=== PATIENT | female | born 1960 | race Caucasian/White ===

== ENCOUNTER 2019-12-17 10:29 | Emergency (ER) | payer SELFPAY ==
[~2019-12-17] VITALS: Ht 167 cm; Wt 95.0 kg
[~2019-12-17 10:29] MED LIST: ALBU1.25 IH; ALBU2.5V4 IH; AZIT500T PO; BENZONATATE 200 MG PO; DOXY100C2 PO; DOXY100T31 PO; EST.625T; GFCD10B PO; LEVO750T9 PO; METH4TAB PO; PRD10T PO; PRD50T PO; PRED10TA22 PO; RNT150T PO; RT-ALBUINH IH
--- NOTE | 2019-12-17 10:55 | NUR ---
COVID TESTING DONE.
[2019-12-17] MEDS ORDERED: RX-ALBUTEROL INHALER (VENTOLIN HFA) 18 GM IH STA (11:13)
[2019-12-17] MEDS ORDERED: NS IV 1000 ML 1,000 ML IV SCH ×2 (11:13→11:35)
[2019-12-17] MEDS ORDERED: LEVOFLOXACIN 500 MG/100 ML IV 100 ML IV ONE (11:15)
--- OUTSIDE RECORDS SUMMARY | 2019-12-17 11:17 | XMS REPORT | Clinical Summary ---
Author Author [facility] Organization [facility] Address Unknown Phone Unavailable Care Team Providers Care Waste Water Plant Operator Name Role Phone David Dacosta MD Unavailable Nay Mckeon Unavailable Unavailable Brain Mcelroy MD PCP Unavailable Janell Mishra RN Unavailable Unavailable Source Comments Some departments are not documenting in the electronic medical record. If you d o not see the information that you expected, contact Release of Information in Critical access hospital Information Management department at [phone] for further assistan ce in locating additional records.[facility] Allergies Comments Active Allergy Reactions Severity Noted Date swelling Penicillins RASH Medium 01/15/2015 Sulfa (Sulfonamide HIVES Medium 01/28/2015 Antibiotics) Medications End Date Status Medication Sig Dispensed Refills Start Date Active NO HOME MEDICATIONS [address](+) Take 1 Cap by 30 Cap 5 01 (PRILOSEC) 20 mg mouth daily. 5 capsuleIndications: Gastroesophageal reflux disease, esophagitis presence not specified, Calzada's esophagus, Colon polyp Active PEG 6317-Icfvhkctuabt-Oon Take as 1 Each 0 C (MOVIPREP) directed by 5 100-7.5-2.691 gram the pwpkIndications: physician. Gastroesophageal reflux disease, esophagitis presence not specified, Calzada's esophagus, Colon polyp Active Problems Not on file Family History Medical History Relation Name Comments Cancer Mother Cancer-Ovarian Sister Thyroid Disease Sister Thyroid Disease Sister Thyroid Disease Sister Relation Name Status Comments Father Mother Sister Alive Sister Alive Sister Alive Social History Date Tobacco Use Types Packs/Day Years Used Current Every Day Smoker Smokeless Tobacco: Never Used Drinks/Week oz/Week Comments Alcohol Use 0 Standard drinks or equivalent 0.0 No Sex Assigned at Date Recorded Not on file Industry Job Start Date Occupation Not on file Not on file Not on file Travel End Travel History Travel Start No recent travel history available. Last Filed Vital Signs Reading Time Taken Comments Vital Sign 121/79 01/28/2015 12:26 PM CDT Blood Pressure 62 01/28/2015 12:26 PM CDT Pulse 36.4 C (97.5 F) 01/28/2015 11:58 AM CDT Temperature 16 01/15/2015 1:02 PM CDT Respiratory Rate 99% 01/28/2015 12:26 PM CDT Oxygen Saturation - - Inhaled Oxygen Concentration 86.2 kg (190 lb) 01/28/2015 10:19 AM CDT Weight 167.6 cm (5' 6") 01/28/2015 10:19 AM CDT Height 30.67 01/28/2015 10:19 AM CDT Body Mass Index Plan of Treatment Health Maintenance Due Date Last Done Comments HIV SCREENING 1973 DTAP/TDAP VACCINES (1 - 1976 Tdap) HEPATITIS C SCREENING 1976 PHYSICAL (COMPREHENSIVE) 1976 EXAM CERVICAL CANCER SCREENING 1979 BREAST CANCER SCREENING 1998 SHINGLES RECOMBINANT 2008 VACCINE (1 of 2) INFLUENZA VACCINE 03/06/2020 COLORECTAL CANCER 01/28/2025 01/28/2015 SCREENING Results Not on filefrom Last 3 Months Advance Directives Patient Quality Control Projectionist Explanation Type Date Recorded Advance 01/28/2015 8:56 AM Directive/DPOA
--- OUTSIDE RECORDS SUMMARY | 2019-12-17 11:18 | XMS REPORT | Continuity of Care Document ---
Author Organization Unknown Address Unknown Phone Unavailable Allergies Active Description Code Type Severity Reaction Onset Reported/Identified Relationship to Patient Clinical Status Yes Penicillins [id number] Drug Aller gy Mild HIVES 03/03/2009 Yes Sulfa (Sulfonamide Antibiotics) [id number] Drug Allergy Mild HIVES 9 Medications There is no data. Problems Date Dx Coded Attending Type Code Diagnosis Diagnosed By 03/03/2009 Ot 789.09 06/01/2011 Ot 305.1 TOBA POTABLE WATER TREATMENT OPERATOR USE DISORDER 06/01/2011 Ot 466.0 ACUT E BRONCHITIS 06/01/2011 Ot 786.2 COUGH 01/13/2014 DONTE CLINE MD Ot 719. 44 JOINT PAIN-HAND 01/13/2014 DONTE CLINE MD Ot 727. 05 TENOSYNOV HAND/WRIST NEC 04/15/2014 JULIANA WEATHERS APRN Ot 913 .0 ABRASION FOREARM 04/15/2014 JULIANA WEATHERS APRN Ot 959 .3 ELB/FOREARM/WRST INJ NOS 04/15/2014 JULIANA WEATHERS APRN Ot E000.8 OTHER EXTERNAL CAUSE STATUS 04/15/2014 JULIANA WEATHERS APRN Ot E888.1 FALL STRIKING OBJECT NEC 06/17/2014 Ot V76.12 08/28/2014 RANDY CLARKE APRN 530.85 ROBLES'S ESOPHAGUS 08/28/2014 RANDY CLARKE APRN V72.31 YARN EXAMINER SKEINS EXAM, ROUTINE 08/28/2014 RANDY CLARKE APRN V72.62 LAB SCREENING- GENERAL PHYSICAL 08/28/2014 RANDY CLARKE APRN V76.10 BREAST CANCER SCREENING 08/28/2014 RANDY CLARKE APRN V76.51 COLON CANCER SCREENING 11/24/2015 Ot F17.210 NI COTINE DEPENDENCE, CIGARETTES, UNCOMPL 11/24/2015 Ot J20.9 ACUT E BRONCHITIS, UNSPECIFIED 11/27/2015 TRICIA, RANDY A FORKLIFT OPERATOR Ot V76.12 OTH SCREEN MAMMO-MALIGN NEOPLASM OF ARMANI 11/29/2015 Ot F17.210 NI COTINE DEPENDENCE, CIGARETTES, UNCOMPL 11/29/2015 Ot J20.9 ACUT E BRONCHITIS, UNSPECIFIED 12/18/2015 Ot F17.210 NI COTINE DEPENDENCE, CIGARETTES, UNCOMPL 12/18/2015 Ot J20.9 ACUT E BRONCHITIS, UNSPECIFIED 03/25/2016 RANDY CLARKE FORKLIFT OPERATOR Ot V76.12 OTH SCREEN MAMMO-MALIGN NEOPLASM OF ARMANI 03/26/2016 SHANICE BERTRAND DO Ot F17.210 NICOTINE DEPENDENCE, CIGARETTES, UNCOMPL 03/26/2016 SHANICE BERTRAND DO M Ot I34. 1 NONRHEUMATIC MITRAL (VALVE) PROLAPSE 03/26/2016 SHANICE BERTRAND DO Ot J18. 9 PNEUMONIA, UNSPECIFIED ORGANISM 03/26/2016 SHANICE BERTRAND DO M Ot J44. 0 CHRONIC OBSTRUCTIVE PULMON DISEASE W ACU 03/26/2016 SHANICE BERTRAND DO Ot J44. 1 CHRONIC OBSTRUCTIVE PULMONARY DISEASE W 03/26/2016 SHANICE BERTRAND DO M Ot R91. 8 OTHER NONSPECIFIC ABNORMAL FINDING OF CELIA 03/26/2016 TRICIAANUJRANDY A FORKLIFT OPERATOR Ot V76.12 OTH SCREEN MAMMO-MALIGN NEOPLASM OF ARMANI 03/26/2016 SHANICE BERTRAND DO Ot F17.210 NICOTINE DEPENDENCE, CIGARETTES, UNCOMPL 03/26/2016 SHANICE BERTRAND DO M Ot I34. 1 NONRHEUMATIC MITRAL (VALVE) PROLAPSE 03/26/2016 SHANICE BERTRAND DO Ot J18. 9 PNEUMONIA, UNSPECIFIED ORGANISM 03/26/2016 SHANICE BERTRAND DO M Ot J44. 0 CHRONIC OBSTRUCTIVE PULMON DISEASE W ACU 03/26/2016 SHANICE BERTRAND DO M Ot J44. 1 CHRONIC OBSTRUCTIVE PULMONARY DISEASE W 03/26/2016 HADLEY BERTRAND DOSON M Ot R91. 8 OTHER NONSPECIFIC ABNORMAL FINDING OF CELIA 03/29/2016 SHANICE BERTRAND DO M Ot F17.210 NICOTINE DEPENDENCE, CIGARETTES, UNCOMPL 03/29/2016 SHANICE BERTRAND DO M Ot I34. 1 NONRHEUMATIC MITRAL (VALVE) PROLAPSE 03/29/2016 SHANICE BERTRAND DO M Ot J18. 9 PNEUMONIA, UNSPECIFIED ORGANISM 03/29/2016 SHANICE BERTRAND DO Ot J44. 0 CHRONIC OBSTRUCTIVE PULMON DISEASE W ACU 03/29/2016 SHANICE BERTRAND DO Ot J44. 1 CHRONIC OBSTRUCTIVE PULMONARY DISEASE W 03/29/2016 SHANICE BERTRAND DO Ot R91. 8 OTHER NONSPECIFIC ABNORMAL FINDING OF CELIA 04/28/2016 JERZYSHANICE PAYNE DO Ot R91. 8 OTHER NONSPECIFIC ABNORMAL FINDING OF CELIA 04/28/2016 SHANICE BERTRAND DO Ot Z72. 0 TOBACCO USE 05/03/2016 SHANICE BERTRAND DO Ot R91. 8 OTHER NONSPECIFIC ABNORMAL FINDING OF CELIA 05/03/2016 SHANICE BERTRAND DO Ot Z72. 0 TOBACCO USE 05/06/2016 SHANICE BERTRAND DO Ot R91. 8 OTHER NONSPECIFIC ABNORMAL FINDING OF CELIA 05/06/2016 SHANICE BERTRAND DO Ot Z72. 0 TOBACCO USE Procedures Code Description Performed By Per formed On GENERAL S GEM BLOUNT 09/02/2014 84102 ROUT INE VENIPUNCTURE 09/02/2014 64378 CBC 09/02/2014 1143677 GF R CALC (RESULT ONLY) 09/02/2014 64270 CMP 09/02/2014 09771 LIPI D PANEL 09/02/2014 60192 TSH 09/02/2014 13654 MAMM OGRAM, SCREENING 09/03/2014 Results Test Result Range Complete blood count (CBC) with automate d white blood cell (WBC) differential - 03/25/16 17:34 Blood leukocytes automated count (number/volume) 9.4 10*3/uL 4.3-11.0 Blood erythrocytes automated count (number/volume) 4.88 10*6/uL 4.35-5.85 Venous blood hemoglobin measurement (mass/volume) 14.9 g/dL 11.5-16.0 Blood hematocrit (volume fraction) 44 % 35-52 Automated erythrocyte mean corpuscular volume 90 [ foz_us] 80-99 Automated erythrocyte mean corpuscular h emoglobin (mass per erythrocyte) 31 pg 25-34 Automated erythrocyte mean corpuscular h emoglobin concentration measurement (mass/volume) 34 g/dL 32-36 Automated erythrocyte distribution width ratio 13. 6 % 10.0- 14.5 Automated blood platelet count (count/volume) 184 10*3/uL 130-400 Automated blood platelet mean volume measurement 10.5 [foz_us] 7.4-10.4 Automated blood neutrophils/100 leukocytes 73 % 42-75 Automated blood lymphocytes/100 leukocytes 16 % 12-44 Blood monocytes/100 leukocytes 11 % 0-12 Automated blood eosinophils/100 leukocytes 0 % 0-10 Automated blood basophils/100 leukocytes 1 % 0-10 Blood neutrophils automated count (number/volume) 6.9 10*3 1.8-7.8 Blood lymphocytes automated count (number/volume) 1.5 10*3 1.0-4.0 Blood monocytes automated count (number/volume) 1. 0 10*3 0.0-1.0 Automated eosinophil count 0.0 10*3/uL 0 .0-0.3 Automated blood basophil count (count/volume) 0.1 10*3/uL 0.0-0.1 Comprehensive metabolic panel - 03/25/16 17:34 Serum or plasma sodium measurement (moles/volume) 137 mmol/L 135-145 Serum or plasma potassium measurement (moles/volume) 3.9 mmol/L 3.6-5.0 Serum or plasma chloride measurement (moles/volume) 103 mmol/L 98-107 Carbon dioxide 22 mmol/L 21-32 Serum or plasma anion gap determination (moles/volume) 12 mmol/L 5-14 Serum or plasma urea nitrogen measurement (mass/volume ) 14 mg/dL 7-18 Serum or plasma creatinine measurement (mass/volume) 1.07 mg/dL 0.60-1.30 Serum or plasma urea nitrogen/creatinine mass ratio 13 NRG Serum or plasma creatinine measurement w ith calculation of estimated glomerular filtration rate 53 NRG Serum or plasma glucose measurement (mass/volume) 97 mg/dL 70-105 Serum or plasma calcium measurement (mass/volume) 9.3 mg/dL 8.5-10.1 Serum or plasma total bilirubin measurement (mass/volu me) 0.3 mg/dL 0.1-1.0 Serum or plasma alkaline phosphatase shiva surement (enzymatic activity/volume) 67 U/L 40-136 Serum or plasma aspartate aminotransfera se measurement (enzymatic activity/volume) 27 U/L 5-34 Serum or plasma alanine aminotransferase measurement (enzymatic activity/volume) 31 U/L 0-55 Serum or plasma protein measurement (mass/volume) 6.7 g/dL 6.4-8.2 Serum or plasma albumin measurement (mass/volume) 4.0 g/dL 3.2-4.5 Bacterial blood culture - 03/25/16 17:34 Bacterial blood culture NG NRG Blood lactic acid measurement (moles/vol ume) - 03/25/16 17:45 Blood lactic acid measurement (moles/volume) 1.8 m mol/L 0.5- 2.0 Bacterial blood culture - 03/25/16 18:10 Bacterial blood culture NG NRG Sputum Gram stain - 03/25/16 23:20 GRAM STAIN SPUTUM AND MIXED BACTERIAL MIKKI NRG Bacterial sputum culture - 03/25/16 23:2 0 Bacterial sputum culture NORMAL NRG Complete blood count (CBC) with automate d white blood cell (WBC) differential - 03/27/16 05:38 Blood leukocytes automated count (number/volume) 14.8 10*3/uL 4.3-11.0 Blood erythrocytes automated count (number/volume) 4.32 10*6/uL 4.35-5.85 Venous blood hemoglobin measurement (mass/volume) 13.2 g/dL 11.5-16.0 Blood hematocrit (volume fraction) 39 % 35-52 Automated erythrocyte mean corpuscular volume 91 [ foz_us] 80-99 Automated erythrocyte mean corpuscular h emoglobin (mass per erythrocyte) 31 pg 25-34 Automated erythrocyte mean corpuscular h emoglobin concentration measurement (mass/volume) 34 g/dL 32-36 Automated erythrocyte distribution width ratio 13. 5 % 10.0- 14.5 Automated blood platelet count (count/volume) 185 10*3/uL 130-400 Automated blood platelet mean volume measurement 10.9 [foz_us] 7.4-10.4 Automated blood neutrophils/100 leukocytes 80 % 42-75 Automated blood lymphocytes/100 leukocytes 12 % 12-44 Blood monocytes/100 leukocytes 7 % 0-12 Automated blood eosinophils/100 leukocytes 0 % 0-10 Automated blood basophils/100 leukocytes 1 % 0-10 Blood neutrophils automated count (number/volume) 11.9 10*3 1.8-7.8 Blood lymphocytes automated count (number/volume) 1.7 10*3 1.0-4.0 Blood monocytes automated count (number/volume) 1. 1 10*3 0.0-1.0 Automated eosinophil count 0.0 10*3/uL 0 .0-0.3 Automated blood basophil count (count/volume) 0.1 10*3/uL 0.0-0.1 Blood manual differential performed dete ction - 03/27/16 05:38 Blood monocytes/100 leukocytes 4 % NRG Manual blood segmented neutrophils/100 leukocytes 76 % NRG Blood band neutrophils/100 leukocytes 5 % NRG Manual blood lymphocytes/100 leukocytes 9 % NRG Manual eosinophils/100 leukocytes in nose 0 % NRG Manual blood basophils/100 leukocytes 0 % NRG Blood lymphocytes variant/100 leukocytes 6 % NRG Blood anisocytosis detection by light microscopy S LIGHT NRG Blood toxic granules detection by light microscopy 1+ NRG Comprehensive metabolic panel - 03/27/16 05:38 Serum or plasma sodium measurement (moles/volume) 141 mmol/L 135-145 Serum or plasma potassium measurement (moles/volume) 3.9 mmol/L 3.6-5.0 Serum or plasma chloride measurement (moles/volume) 112 mmol/L 98-107 Carbon dioxide 18 mmol/L 21-32 Serum or plasma anion gap determination (moles/volume) 11 mmol/L 5-14 Serum or plasma urea nitrogen measurement (mass/volume ) 15 mg/dL 7-18 Serum or plasma creatinine measurement (mass/volume) 0.85 mg/dL 0.60-1.30 Serum or plasma urea nitrogen/creatinine mass ratio 18 NRG Serum or plasma creatinine measurement w ith calculation of estimated glomerular filtration rate > NRG Serum or plasma glucose measurement (mass/volume) 153 mg/dL 70-105 Serum or plasma calcium measurement (mass/volume) 8.9 mg/dL 8.5-10.1 Serum or plasma total bilirubin measurement (mass/volu me) 0.2 mg/dL 0.1-1.0 Serum or plasma alkaline phosphatase shiva surement (enzymatic activity/volume) 66 U/L 40-136 Serum or plasma aspartate aminotransfera se measurement (enzymatic activity/volume) 18 U/L 5-34 Serum or plasma alanine aminotransferase measurement (enzymatic activity/volume) 22 U/L 0-55 Serum or plasma protein measurement (mass/volume) 5.7 g/dL 6.4-8.2 Serum or plasma albumin measurement (mass/volume) 3.4 g/dL 3.2-4.5 Magnesium - 03/27/16 05:38 Magnesium 2.2 mg/dL 1.8-2.4 Lipid 1996 panel - 03/27/16 05:38 Serum or plasma triglyceride measurement (mass/volume) 95 mg/dL <150 Serum or plasma cholesterol measurement (mass/volume) 140 mg/dL < 200 Serum or plasma cholesterol in HDL measurement (mass/v olume) 44 mg/dL 40-60 Cholesterol in LDL [mass/volume] in serum or plasma by direct assay 80 mg/dL 1-129 Serum or plasma cholesterol in VLDL measurement (mass/ volume) 19 mg/dL 5-40 Complete blood count (CBC) with automate d white blood cell (WBC) differential - 03/28/16 05:38 Blood leukocytes automated count (number/volume) 17.8 10*3/uL 4.3-11.0 Blood erythrocytes automated count (number/volume) 4.03 10*6/uL 4.35-5.85 Venous blood hemoglobin measurement (mass/volume) 12.2 g/dL 11.5-16.0 Blood hematocrit (volume fraction) 37 % 35-52 Automated erythrocyte mean corpuscular volume 91 [ foz_us] 80-99 Automated erythrocyte mean corpuscular h emoglobin (mass per erythrocyte) 30 pg 25-34 Automated erythrocyte mean corpuscular h emoglobin concentration measurement (mass/volume) 33 g/dL 32-36 Automated erythrocyte distribution width ratio 13. 5 % 10.0- 14.5 Automated blood platelet count (count/volume) 189 10*3/uL 130-400 Automated blood platelet mean volume measurement 10.7 [foz_us] 7.4-10.4 Automated blood neutrophils/100 leukocytes 84 % 42-75 Automated blood lymphocytes/100 leukocytes 11 % 12-44 Blood monocytes/100 leukocytes 5 % 0-12 Automated blood eosinophils/100 leukocytes 0 % 0-10 Automated blood basophils/100 leukocytes 0 % 0-10 Blood neutrophils automated count (number/volume) 14.9 10*3 1.8-7.8 Blood lymphocytes automated count (number/volume) 1.9 10*3 1.0-4.0 Blood monocytes automated count (number/volume) 0. 8 10*3 0.0-1.0 Automated eosinophil count 0.0 10*3/uL 0 .0-0.3 Automated blood basophil count (count/volume) 0.1 10*3/uL 0.0-0.1 Comprehensive metabolic panel - 03/28/16 05:38 Serum or plasma sodium measurement (moles/volume) 139 mmol/L 135-145 Serum or plasma potassium measurement (moles/volume) 3.8 mmol/L 3.6-5.0 Serum or plasma chloride measurement (moles/volume) 111 mmol/L 98-107 Carbon dioxide 20 mmol/L 21-32 Serum or plasma anion gap determination (moles/volume) 8 mmol/L 5-14 Serum or plasma urea nitrogen measurement (mass/volume ) 16 mg/dL 7-18 Serum or plasma creatinine measurement (mass/volume) 0.80 mg/dL 0.60-1.30 Serum or plasma urea nitrogen/creatinine mass ratio 20 NRG Serum or plasma creatinine measurement w ith calculation of estimated glomerular filtration rate > NRG Serum or plasma glucose measurement (mass/volume) 145 mg/dL 70-105 Serum or plasma calcium measurement (mass/volume) 8.2 mg/dL 8.5-10.1 Serum or plasma total bilirubin measurement (mass/volu me) 0.2 mg/dL 0.1-1.0 Serum or plasma alkaline phosphatase shiva surement (enzymatic activity/volume) 51 U/L 40-136 Serum or plasma aspartate aminotransfera se measurement (enzymatic activity/volume) 19 U/L 5-34 Serum or plasma alanine aminotransferase measurement (enzymatic activity/volume) 25 U/L 0-55 Serum or plasma protein measurement (mass/volume) 5.1 g/dL 6.4-8.2 Serum or plasma albumin measurement (mass/volume) 3.1 g/dL 3.2-4.5 Comprehensive metabolic panel - 03/29/16 05:25 Serum or plasma sodium measurement (moles/volume) 140 mmol/L 135-145 Serum or plasma potassium measurement (moles/volume) 4.2 mmol/L 3.6-5.0 Serum or plasma chloride measurement (moles/volume) 110 mmol/L 98-107 Carbon dioxide 21 mmol/L 21-32 Serum or plasma anion gap determination (moles/volume) 9 mmol/L 5-14 Serum or plasma urea nitrogen measurement (mass/volume ) 20 mg/dL 7-18 Serum or plasma creatinine measurement (mass/volume) 0.81 mg/dL 0.60-1.30 Serum or plasma urea nitrogen/creatinine mass ratio 25 NRG Serum or plasma creatinine measurement w ith calculation of estimated glomerular filtration rate > NRG Serum or plasma glucose measurement (mass/volume) 146 mg/dL 70-105 Serum or plasma calcium measurement (mass/volume) 8.5 mg/dL 8.5-10.1 Serum or plasma total bilirubin measurement (mass/volu me) 0.2 mg/dL 0.1-1.0 Serum or plasma alkaline phosphatase shiva surement (enzymatic activity/volume) 62 U/L 40-136 Serum or plasma aspartate aminotransfera se measurement (enzymatic activity/volume) 19 U/L 5-34 Serum or plasma alanine aminotransferase measurement (enzymatic activity/volume) 26 U/L 0-55 Serum or plasma protein measurement (mass/volume) 5.2 g/dL 6.4-8.2 Serum or plasma albumin measurement (mass/volume) 3.1 g/dL 3.2-4.5 Complete blood count (CBC) with automate d white blood cell (WBC) differential - 03/29/16 05:25 Blood leukocytes automated count (number/volume) 16.2 10*3/uL 4.3-11.0 Blood erythrocytes automated count (number/volume) 3.98 10*6/uL 4.35-5.85 Venous blood hemoglobin measurement (mass/volume) 12.1 g/dL 11.5-16.0 Blood hematocrit (volume fraction) 36 % 35-52 Automated erythrocyte mean corpuscular volume 91 [ foz_us] 80-99 Automated erythrocyte mean corpuscular h emoglobin (mass per erythrocyte) 30 pg 25-34 Automated erythrocyte mean corpuscular h emoglobin concentration measurement (mass/volume) 34 g/dL 32-36 Automated erythrocyte distribution width ratio 13. 5 % 10.0- 14.5 Automated blood platelet count (count/volume) 196 10*3/uL 130-400 Automated blood platelet mean volume measurement 10.6 [foz_us] 7.4-10.4 Automated blood neutrophils/100 leukocytes 80 % 42-75 Automated blood lymphocytes/100 leukocytes 14 % 12-44 Blood monocytes/100 leukocytes 5 % 0-12 Automated blood eosinophils/100 leukocytes 0 % 0-10 Automated blood basophils/100 leukocytes 1 % 0-10 Blood neutrophils automated count (number/volume) 13.0 10*3 1.8-7.8 Blood lymphocytes automated count (number/volume) 2.2 10*3 1.0-4.0 Blood monocytes automated count (number/volume) 0. 9 10*3 0.0-1.0 Automated eosinophil count 0.0 10*3/uL 0 .0-0.3 Automated blood basophil count (count/volume) 0.2 10*3/uL 0.0-0.1 Encounters ACCT No. Visit Date/Time Discharge Status Pt. Type Provider Facility Loc./Unit Complaint [id number] 09/02/2014 08:00:00 09/02/2014 23:59: 59 CLS Outpatient RANDY CLARKE APRN [id number] 05/06/2017 13:00:00 017 23:59:59 CLS Preadmit CONRAD LARA APRN [facility] RT MIXED RESTRICTIVE/OBSTRUCTIVE LUNG DISEASE [id number] 04/28/2016 11:24:00 016 23:59:59 CLS Outpatient SHANICE BERTRAND DO [facility] RAD LUNG MASS [id number] 03/25/2016 18:50:00 016 12:30:00 DIS Inpatient SHANICE BERTRAND DO [facility] 4TH PNEUMONIA [id number] 09/05/2014 13:52:00 015 23:59:59 CLS Outpatient RANDY CLARKE APRN [facility] RAD SCREENING [id number] 04/15/2014 19:45:00 014 21:21:00 DIS Emergency JULIANA WEATHERS FORKLIFT OPERATOR [facility] ER LEFT WRIST PAIN [id number] 01/13/2014 00:52:00 014 01:56:00 DIS Emergency DONTE CLINE MD [facility] ER L WRIST PAIN [id number] 04/24/2013 17:00:00 013 10:10:00 DIS Inpatient [id number] 11/23/2015 23:14:00 Document Registration [id number] 06/17/2014 08:59:00 Document Registration [id number] 06/01/2011 19:24:00 Document Registration [id number] 03/03/2009 18:21:00 Document Registration [id number] 02/11/2009 08:17:00 Document Registration
--- OUTSIDE RECORDS SUMMARY | 2019-12-17 11:18 | XMS REPORT ---
Author Author [facility] Skinny Mom Address [address] [address] Care Team Providers Care Optometric Technician Name Role Phone JASPREET BOLES Unavailable Allergies No Information Encounters No Information Medical Equipment No Information Goals No Information Immunizations No Information Interventions No Information Medications No Information Payers No Information Plan of Treatment The data below is from unstructured sources Discharge Date 11/24/15 12:22am Disposition 01 HOME, SELF-CARE Condition at Discharge Stable Instructions/Education Provided Acut e Bronchitis (ED) Prescriptions See Medication Section Referrals JASPREET BOLES MD - Primary Care Physician No plan of care. Problems No Information Procedures The data below is from unstructured sourcesNo known history of procedures.No known history of procedures.No known history of procedures. Results The data below is from unstructured sourcesNo known relevant diagnostic tests, laboratory data and/or discharge summary. Social History No Information Vital Signs The data below is from unstructured sources Vital Response Date/Time Temperature (Fahrenheit) 96.4 degree s F (97.6 - 99.5) 11/24/2015 12:22am Temperature (Calculated Celsius) 35. 46980 degrees C (36.4 - 37.5) 11/24/2015 12:22am Temperature Source Temporal 11/24/2015 12:22am Pulse Rate (adult) 76 bpm (60 - 90) 11/24/2015 12:22am Respiratory Rate 18 bpm (12 - 24) 11/24/2015 12:22am O2 Sat by Pulse Oximetry 97 % (88 - 100) 11/24/2015 12:22am Blood Pressure 148/81 mm Hg 11/24/2015 12:22am Blood Pressure Mean 117 mm Hg 11/23/2015 11:20pm Pain Pain Intensity 0 2015 12:22am Height (Feet) 5 feet 11:20pm Height (Inches) 6 inches 11/23/2015 11:20pm Height (Calculated Centimeters) 167. 274119 cm 11/23/2015 11:20pm Weight (Pounds) 205 pounds 11/23/2015 11:20pm Weight (Calculated Grams) 65284.475 gm 11/23/2015 11:20pm Weight (Calculated Kilograms) 92.986 437 kilograms 11/23/2015 11:20pm Calculated BMI 32.28 11:20pm Vital Response Date/Time Temperature (Fahrenheit) 98.7 degree s F (97.6 - 99.5) Temperature (Calculated Celsius) 37. 60958 degrees C (36.4 - 37.5) Temperature Source Temporal Pulse Rate (adult) 73 bpm (60 - 90) Respiratory Rate 18 bpm (12 - 24) O2 Sat by Pulse Oximetry 97 % (88 - 100) Blood Pressure 175/83 mm Hg Pain Pain Intensity 6 Height (Feet) 5 feet Height (Inches) 6 inches Height (Calculated Centimeters) 167. 950801 cm Weight (Pounds) 200 pounds Weight (Calculated Kilograms) 90.718 475 kilograms Calculated BMI 32.28 Vital Response Date/Time Temperature (Fahrenheit) 98.7 degree s F (97.6 - 99.5) Temperature (Calculated Celsius) 37. 70848 degrees C (36.4 - 37.5) Temperature Source Temporal Pulse Rate (adult) 73 bpm (60 - 90) Respiratory Rate 18 bpm (12 - 24) O2 Sat by Pulse Oximetry 97 % (88 - 100) Blood Pressure 175/83 mm Hg Pain Pain Intensity 6 Height (Feet) 5 feet Height (Inches) 6 inches Height (Calculated Centimeters) 167. 447095 cm Weight (Pounds) 200 pounds Weight (Calculated Kilograms) 90.718 475 kilograms Calculated BMI 32.28 Functional Status The data below is from unstructured sourcesNo functional status results.No functional status results.No functional status results. Mental Status No Information Advance Directives Directive Response Recor ded Date/Time Advance Directives No 11:20pm Health Care Power of Wheel Cutter No 11/23/15 11:20pm Organ Donor No 11/23/15 11:20pm Resuscitation Status Full Code 11/23/15 11:20pm Directive Response Recor ded Date/Time Advance Directives No 8:04pm Health Care Power of Wheel Cutter No 04/15/14 8:04pm Organ Donor No 04/15/14 8:04pm Resuscitation Status Full Code 04/15/14 8:04pm Discharge Instructions No hospital discharge instructions.No hospital discharge instructions. Additional Source Comments This clinical document has been generated using [employer] software that has been certified by the Office of the National Coordinator for Health Information Technology (ONC 15.99.04.3023.Diam.31.00.0.509961) and the National Committee for Mill Worker (NCQA, as an eMeasure certified technology). FOR RECORDS PERTAINING TO PATIENTS WHO ARE OR HAVE BEEN ENROLLED IN A CHEMICAL D EPENDENCY/SUBSTANCE ABUSE PROGRAM, SOME INFORMATION MAY BE OMITTED. This clinica l summary was aggregated from multiple sources. Caution should be exercised in using it in the provision of clinical care. This summary normalizes information from multiple sources, and as a consequence, information in this document may ma terially change the coding, format and clinical context of patient data. In lucie tion, data may be omitted in some cases. CLINICAL DECISIONS SHOULD BE BASED ON T HE PRIMARY CLINICAL RECORDS. [employer] provides no warranty or guara ntee of the accuracy or completeness of information in this document.The followi ng information is based on time limited clinical information
[2019-12-17 11:22] LABS: BASOPHILS % (AUTO) 0 % (0-10); EOSINOPHILS # (AUTO) 0.1 10^3/uL (0.0-0.3); EOSINOPHILS % (AUTO) 1 % (0-10); HEMATOCRIT 41 % (35-52); HEMOGLOBIN 14.3 G/DL (11.5-16.0); LYMPHOCYTES # (AUTO) 1.4 X 10^3 (1.0-4.0); LYMPHOCYTES % (AUTO) 16 % (12-44); MEAN CORPUSCULAR HEMOGLOBIN 30 PG (25-34); MEAN CORPUSCULAR HGB CONC 35 G/DL (32-36); MEAN CORPUSCULAR VOLUME 88 FL (80-99); MEAN PLATELET VOLUME 10.8 FL (7.4-10.4); MONOCYTES # (AUTO) 0.7 X 10^3 (0.0-1.0); MONOCYTES % (AUTO) 8 % (0-12); NEUTROPHILS # (AUTO) 6.7 X 10^3 (1.8-7.8); NEUTROPHILS % (AUTO) 75 % (42-75); PLATELET COUNT 161 10^3/uL (130-400); RED CELL DISTRIBUTION WIDTH 13.5 % (10.0-14.5); WHITE BLOOD COUNT 8.9 10^3/uL (4.3-11.0)
[2019-12-17 11:30] LABS: ALBUMIN 4.1 GM/DL (3.2-4.5); POTASSIUM 3.4 MMOL/L (3.6-5.0)
[2019-12-17 11:31] LABS: CALCIUM 9.2 MG/DL (8.5-10.1)
[2019-12-17 11:33] LABS: INR 0.9 (0.8-1.4); PROTHROMBIN TIME PATIENT 12.7 SEC (12.2-14.7); TOTAL PROTEIN 6.9 GM/DL (6.4-8.2)
[2019-12-17 11:34] LABS: BILIRUBIN,TOTAL 0.7 MG/DL (0.1-1.0)
--- NOTE | 2019-12-17 11:35 | ED Cough/URI ---
General Chief Complaint: Respiratory Problems Stated Complaint: SOB;COUGH Nursing Triage Note: ARRIVED VIA POV TO [facility]. COMPLAINS OF SOA WITH SORE THROAT AND NASAL CONGESTION X2 DAYS. SORE THROAT IS GONE. STATES SHE IS ALSO HAVING SOME DIARRHEA AFTER TAKING ELDERBERRY. DENIES FEVER. STATES SHE GETS THIS TWICE A YEAR. Sepsis Screen: No Definite Risk Source: patient Exam Limitations: no limitations History of Present Illness Date Seen by Provider: Dec 17, 2019 Time Seen by Provider: 10:43 Initial Comments Patient presents to ER by private conveyance from home with chief complaint of shortness of air and a cough as well as nasal congestion. She had a fever 101 on Tuesday, 2 days ago. No fever today no chills. No nausea vomiting but she did have some soft stools without blood in it. She says she gets symptoms like this about twice a year and typically a Z-Yogesh helps. She did lose her albuterol inhaler and feels wheezy. She denies having a diagnosis of asthma or COPD nor does she follow with a primary care doctor but she smokes over a pack a day. Allergies and Home Medications Allergies Coded Allergies: Penicillins (Unverified Allergy, Mild, HIVES, 03/03/09) Sulfa (Sulfonamide Antibiotics) (Unverified Allergy, Mild, HIVES, 03/03/09) Home Medications Albuterol Sulfate 18 Gm Hfa.aer.ad, 2 PUFF IH QID PRN for SHORTNESS OF BREATH, (Reported) Albuterol Sulfate 2.5 Mg/3 Ml Vial.neb, 2.5 MG IH Q6H PRN for WHEEZING, (Reported) Guaifenesin/Codeine 10 Ml Syrp, 5 ML PO Q4H PRN for COUGH Prescribed by: ERNESTO MERCADO on 03/29/16850 Levofloxacin 750 Mg Tablet, 750 MG PO DAILY Prescribed by: ERNESTO MERCADO on 03/29/16850 Prednisone 10 Mg Tab, 10 MG PO DAILY Take 6 tabs(60mg)daily, decrease by 1 tab(10mg) every other day. Prescribed by: ERNESTO MERCADO on 03/29/16850 [Tessalon 200MG Cap] , 200 MG PO TID PRN for COUGH, (Reported) FILLED 03/23/16 #21 FOR A 7 DAY THERAPY Patient Home Medication List Home Medication List Reviewed: Yes Review of Systems Review of Systems Constitutional: No chills, No diaphoresis EENTM: No ear discharge, No ear pain Respiratory: cough, short of breath Cardiovascular: No chest pain, No palpitations Gastrointestinal: No abdominal pain, No nausea Genitourinary: No discharge, No dysuria Musculoskeletal: No back pain, No joint pain All Other Systems Reviewed Negative Unless Noted: Yes Past Qnspqoz-Okykwa-Xjtbsk Hx Patient Social History Alcohol Use: Denies Use Recreational Drug Use: No Smoking Status: Current Everyday Smoker Type Used: Cigarettes Recent Foreign Travel: No Contact w/Someone Who Travel: No Recent Infectious Disease Expo: No Recent Hopitalizations: No Immunizations Up To Date Tetanus Booster (TDap): Less than 5yrs PED Vaccines UTD: Yes Date of Pneumonia Vaccine: Apr 24, 2009 Seasonal Allergies Seasonal Allergies: No Past Medical History Surgeries: Yes (TOE, R KNEE , MENISCUST, THRYOID CYST REMOVED, CARPEL TUNNEL) Adenoidectomy, Gallbladder, Hysterectomy, Tonsillectomy Respiratory: Yes Pneumonia, Chronic Bronchitis, COPD Currently Using CPAP: No Currently Using BIPAP: No Cardiac: Yes (mitral valve prolapse) Neurological: No Reproductive Disorders: No PRESSER [employer]OT[employer] G[employer]ING History: Menopausal Sexually Transmitted Disease: No HIV/AIDS: No Gastrointestinal: Yes Gastroesophageal Reflux, Calzada's Esophagus, Polyps, Gall Bladder Disease Musculoskeletal: Yes (left arm ) Fractures Endocrine: No Loss of Vision: Denies Hearing Impairment: Hard of Hearing Cancer: No Psychosocial: No Integumentary: No Blood Disorders: No Adverse Reaction/Blood Tranf: No Family Medical History Cancer 09 SISTER Cancer of colon 03 MOTHER Congenital heart disease 09 SISTER Family history: Cardiovascular disease 03 MOTHER Family history: Diabetes mellitus 03 MOTHER Heart disease 03 MOTHER Psychotic disorder 09 SISTER No Pertinent Family Hx Physical Exam Vital Signs - First Documented 12/17/19 10:38 Temp 37.3 Pulse 90 Resp 16 B/P (MAP) 168/100 (122) Pulse Ox 97 O2 Delivery Room Air Capillary Refill : Less Than 3 Seconds Height: 5'6.00" Weight: 203lbs. 6.8oz. 92.582773ft; 34.00 BMI Method:Stated General Appearance: WD/WN, no apparent distress Eyes: Bilateral Eye Normal Inspection, Bilateral Eye PERRL, Bilateral Eye EOMI HEENT: PERRL/EOMI, pharynx normal Neck: full range of motion, supple, normal inspection Respiratory: no respiratory distress (96-97% on room air.), no accessory muscle use, crackles (bilateral lower lungs left greater than right), wheezing Cardiovascular: normal peripheral pulses, regular rate, rhythm (heart rate 80-95.) Gastrointestinal: normal bowel sounds, non tender, soft Neurologic/Psychiatric: alert, normal mood/affect, oriented x 3 Skin: normal color, warm/dry Focused Exam Lactate Level 12/17/19 10:55: Lactic Acid Level 2.68*H Lactic Acid Level Laboratory Tests Test 12/17/19 10:55 Lactic Acid Level 2.68 MMOL/L (0.50-2.00) *H Progress/Results/Core Measures Suspected Sepsis Recent Fever Within 48 Hours: No Infection Criteria Present: Suspected New Infection New/Unexplained Altered Menta: No Sepsis Screen: No Definite Risk SIRS Temperature: Pulse: 90 Respiratory Rate: 16 Laboratory Tests 12/17/19 10:55: White Blood Count 8.9 Blood Pressure 168 /100 Mean: 122 12/17/19 10:55: Lactic Acid Level 2.68*H Laboratory Tests 12/17/19 10:55: Creatinine 1.06, INR Comment 0.9, Platelet Count 161, Total Bilirubin 0.7 Results/Orders Lab Results Laboratory Tests Test 12/17/19 10:55 Range/Units White Blood Count 8.9 4.3-11.0 10^3/uL Red Blood Count 4.70 4.35-5.85 10^6/uL Hemoglobin 14.3 11.5-16.0 G/DL Hematocrit 41 35-52 % Mean Corpuscular Volume 88 80-99 FL Mean Corpuscular Hemoglobin 30 25-34 PG Mean Corpuscular Hemoglobin Concent 35 32-36 G/DL Red Cell Distribution Width 13.5 10.0-14.5 % Platelet Count 161 130-400 10^3/uL Mean Platelet Volume 10.8 H 7.4-10.4 FL Neutrophils (%) (Auto) 75 42-75 % Lymphocytes (%) (Auto) 16 12-44 % Monocytes (%) (Auto) 8 0-12 % Eosinophils (%) (Auto) 1 0-10 % Basophils (%) (Auto) 0 0-10 % Neutrophils # (Auto) 6.7 1.8-7.8 X 10^3 Lymphocytes # (Auto) 1.4 1.0-4.0 X 10^3 Monocytes # (Auto) 0.7 0.0-1.0 X 10^3 Eosinophils # (Auto) 0.1 0.0-0.3 10^3/uL Basophils # (Auto) 0.0 0.0-0.1 10^3/uL Prothrombin Time 12.7 12.2-14.7 SEC INR Comment 0.9 0.8-1.4 Activated Partial Thromboplast Time 41 H 24-35 SEC Sodium Level 138 135-145 MMOL/L Potassium Level 3.4 L 3.6-5.0 MMOL/L Chloride Level 103 98-107 MMOL/L Carbon Dioxide Level 20 L 21-32 MMOL/L Anion Gap 15 H 5-14 MMOL/L Blood Urea Nitrogen 9 7-18 MG/DL Creatinine 1.06 0.60-1.30 MG/DL Estimat Glomerular Filtration Rate 53 BUN/Creatinine Ratio 8 Glucose Level 135 H 70-105 MG/DL Lactic Acid Level 2.68 *H 0.50-2.00 MMOL/L Calcium Level 9.2 8.5-10.1 MG/DL Corrected Calcium 9.1 8.5-10.1 MG/DL Total Bilirubin 0.7 0.1-1.0 MG/DL Aspartate Amino Transf (AST/SGOT) 24 5-34 U/L Alanine Aminotransferase (ALT/SGPT) 34 0-55 U/L Alkaline Phosphatase 63 40-136 U/L Total Protein 6.9 6.4-8.2 GM/DL Albumin 4.1 3.2-4.5 GM/DL Group A Streptococcus Screen NEGATIVE NEGATIVE My Orders Orders - ELIEZER GUERIN Cbc With Automated Diff (12/17/19 11:13) Comprehensive Metabolic Panel (12/17/19 11:13) Blood Culture (12/17/19 11:13) Sputum Culture (12/17/19 11:13) Urinalysis (12/17/19 11:13) Urine Culture (12/17/19 11:13) Protime With Inr (12/17/19 11:13) Partial Thromboplastin Time (12/17/19 11:13) Chest 1 View, Ap/Pa Only (12/17/19 11:13) Ed Iv/Invasive Line Start (12/17/19 11:13) Ed Iv/Invasive Line Start (12/17/19 11:13) Vital Signs Adult Sepsis Patie Q15M (12/17/19 11:13) O2 (12/17/19 11:13) Remove Rings In Anticipation O (12/17/19 11:13) Lactic Acid Analyzer (12/17/19 11:13) Ns Iv 1000 Ml (Sodium Chloride 0.9%) (12/17/19 11:13) Levofloxacin 500 Mg/100 Ml Iv (Levaquin (12/17/19 11:15) Rx-Albuterol Inhaler (Rx-Ventolin Hfa) (12/17/19 11:13) Rapid Strep A Screen (12/17/19 11:18) Coronavirus Sars-Cov-2 So 2018 (12/17/19 11:18) Ed Iv/Invasive Line Start (12/17/19 11:35) Ns Iv 1000 Ml (Sodium Chloride 0.9%) (12/17/19 11:35) Levofloxacin Tablet (Levaquin Tablet) (12/17/19 12:00) Levofloxacin Tablet (Levaquin Tablet) (12/17/19 11:46) Vital Signs/I&O 12/17/19 10:38 Temp 37.3 Pulse 90 Resp 16 B/P (MAP) 168/100 (122) Pulse Ox 97 O2 Delivery Room Air Capillary Refill : Less Than 3 Seconds Blood Pressure Mean: 122 Progress Note : Time: 11:33 Progress Note It may be stretching the definition of sepsis however she does have a history of fever with this illness and heart rate in the 90s on arrival. As she rests and the Provider is no longer examining her heart rate is down to the low 80s. Probably we'll give IV fluids unless she has evidence of current sepsis however I think some basic labs, chest x-ray blood cultures and IV antibiotics are in line. We'll start Levaquin. Try and determine whether she has bronchitis versus pneumonia. Albuterol inhaler has been given to her. White count is normal. She does not meet septic criteria at this time. Her lactate elevated which probably indicates she is dry. After the albuterol and a liter fluids if she is feeling better we will let her go home. Diagnostic Imaging Diagonstic Imaging: Xray Plain Films/CT/US/NM/MRI: chest (1v) Comments NAME: [facility] REC#: [id number] PT STATUS: REG ER : 1960 PHYSICIAN: ELIEZER GUERIN MD ADMIT DATE: 12/17/19/ER Draft Date of Exam:12/17/19 CHEST 1 VIEW, AP/PA ONLY PATIENT HISTORY: Shortness of breath, Covid, cough. TECHNIQUE: Single frontal view of the chest. COMPARISON: 03/25/2016 FINDINGS: The lung volumes are normal. No focal consolidation is seen. No large pleural effusion or pneumothorax is seen. The cardiomediastinal silhouette is normal in size and contour. No acute osseous abnormality is seen. IMPRESSION: No acute pulmonary abnormality seen. Dictated on workstation # [id number] Dict: 12/17/19 1130 Trans: 12/17/19 1133 [facility] [id number] Interpreted by: TILA CARMEN MD Electronically signed by: Reviewed: Reviewed by Me Departure Impression Primary Impression: Acute bronchitis Qualified Codes: J20.9 - Acute bronchitis, unspecified Additional Impression: Dehydration Disposition: HOME, SELF-CARE Condition: Stable Departure-Patient Inst. Decision time for Depature: 11:51 Referrals: NO,LOCAL PHYSICIAN (PCP/Family) Primary Care Physician Patient Instructions: Acute Bronchitis, Adult (DC) Add. Discharge Instructions: 2 puffs of the albuterol every 4 hours as necessary for wheezing or shortness of air. Drink plenty of fluids. Levaquin 1 tablet daily for the next week. Return to the ER if you're having intractable shortness of air or other worrisome symptoms. If you're COVID-19 testing is positive we will call you. If you're strep and throat culture comes back positive we will call you. Stay home away from others for the next 10 days or at least 72 hours after all of your symptoms are gone. Whichever is longer. Plan to establish care with a primary care doctor and discover whether you have COPD and if there are some medications that might help you better manage it. All discharge instructions reviewed with patient and/or family. Voiced understanding. Scripts Levofloxacin (Levaquin) 500 Mg Tablet 500 MG PO DAILY for 7 Days, #6 TAB 0 Refills Prov: ELIEZER GUERIN 12/17/19 Work/School Note: Work Release Form Date Seen in the Emergency Department: Dec 17, 2019 Return to Work: Dec 26, 2019 Other Restrictions Listed Below: May return 72 hours after symptoms are over. ELIEZER GUERIN Dec 17, 2019 11:34
[2019-12-17 11:36] LABS: CREATININE SERUM 1.06 MG/DL (0.60-1.30)
[2019-12-17] MEDS ORDERED: LEVOFLOXACIN 500 MG TAB (LEVAQUIN) ONE (11:46)
[2019-12-17] MEDS ORDERED: LEVO500T2 PO (11:53)
--- NOTE | 2019-12-17 11:59 | NUR ---
PT NOTIFEID THAT EVERYTHING HAS CAME BACK OK SO FAR ET STILL WAITING ON STREP RESULT. ALSO NOTIFIED HER OF MEDS THAT DR WANTS HER TO RECIEVE.
[2019-12-17] MEDS ORDERED: LEVOFLOXACIN 500 MG TAB (LEVAQUIN) PO ONE (12:00)
[2019-12-17] MEDS ORDERED: RX-ALBUTEROL INHALER 8 GM HFA (VENTOLIN) IH STA (12:05)
[2019-12-17 13:34] VITALS: BP 156/92
== END 2019-12-17 13:35 | disposition home or self-care (01) ==
LOC: EDUNIT# 10:29 → ER 10:30
DX: J20.9 Acute bronchitis, unspecified (principal); E86.0 Dehydration; J44.0 Chronic obstructive pulmonary disease with (acute) lower respiratory infection; F17.210 Nicotine dependence, cigarettes, uncomplicated; Z88.0 Allergy status to penicillin; Z88.2 Allergy status to sulfonamides; Z20.828 Contact with and (suspected) exposure to other viral communicable diseases; Z79.52 Long term (current) use of systemic steroids; Z80.0 Family history of malignant neoplasm of digestive organs; Z82.49 Family history of ischemic heart disease and other diseases of the circulatory system
CPT/HCPCS: 71045; 80053; 83605; 85025; 85610; 85730; 87040; 87430; 99284; U0002; 36415; 87635

== ENCOUNTER → 2021-03-23 | Outpatient (CLI) | payer OTHER ==
[~2021-03-23] MED LIST changes: +DOXY100C5 PO; +LEVO500T2 PO
[2021-03-23 10:33] LABS: BILIRUBIN,URINE NEGATIVE (NEGATIVE); CLARITY,URINE CLEAR; COLOR,URINE YELLOW; GLUCOSE, URINE (UA) NEGATIVE (NEGATIVE); KETONES,URINE NEGATIVE (NEGATIVE); LEUKOCYTE ESTERASE ,URINE NEGATIVE (NEGATIVE); NITRITE,URINE NEGATIVE (NEGATIVE); PROTEIN,URINE NEGATIVE (NEGATIVE)
[2021-03-23 10:44] LABS: BACTERIA,URINE NEGATIVE /HPF; SQUAMOUS EPITHELIAL CELL,UR 0-2 /HPF
== END ==
LOC: LAB 10:12
PROVIDERS: ATTEND Family Medicine
DX: R31.9 Hematuria, unspecified (principal)
CPT/HCPCS: 81000

== ENCOUNTER 2021-04-02 05:30 | Outpatient (RCR) | payer OTHER ==
[~2021-04-02] VITALS: Ht 165 cm; Wt 86.8 kg
== END 2021-04-02 11:21 | disposition home or self-care (01) ==
LOC: PREOP 05:30
PROVIDERS: ATTEND Surgery
DX: Z01.812 Encounter for preprocedural laboratory examination (principal); Z20.822 Contact with and (suspected) exposure to COVID-19; Z86.010 Personal history of colon polyps; Z87.19 Personal history of other diseases of the digestive system; Z88.0 Allergy status to penicillin; Z88.2 Allergy status to sulfonamides
CPT/HCPCS: 87635

== ENCOUNTER 2021-04-06 08:04 | Day surgery (SDC) | payer OTHER ==
[~2021-04-06] VITALS: Ht 165 cm; Wt 86.8 kg
[2021-04-06] MEDS ORDERED: LACTATED RINGERS 1,000 ML IV STA (08:06)
[2021-04-06] MEDS ORDERED: LACTATED RINGERS 1,000 ML IV ONE (08:12)
[2021-04-06] MEDS ORDERED: HURRICAINE EXT TUBE (BENZOCAINE) XX PRN (08:15)
[2021-04-06 08:34] VITALS: BP 154/69
--- NOTE | 2021-04-06 08:56 | Progress Note-Pre Operative ---
Pre-Operative Progress Note H&P Reviewed The H&P was reviewed, patient examined and no changes noted. Time Seen by Provider: 08:54 Date H&P Reviewed: Apr 06, 2021 Time H&P Reviewed: 08:54 Pre-Operative Diagnosis: Hx of polyps, Hx of Calzada's CAMMIE LIZAMA DO Apr 06, 2021 08:56
[2021-04-06] MEDS ORDERED: proPOfol 200 MG/20 ML (DIPRIVAN) VIAL IV ONE (09:44)
[2021-04-06] MEDS ORDERED: PROPOFOL INJECTION 50 ML IV ONE (09:48)
--- NOTE | 2021-04-06 10:34 | Progress Note-Post Operative ---
Post-Operative Progess Note Surgeon (s)/Motion Picture Photographer (s) Surgeon CAMMIE LIZAMA DO Motion Picture Photographer: Rustam Mcelroy MSIII Pre-Operative Diagnosis Hx of polyps, Hx of Calzada's Post-Operative Diagnosis Hiatal hernia Calzada's esophagus polyps int hemorrhoids Procedure & Operative Findings Date of Procedure 04/06/21 Procedure Performed/Findings EGD with bx Colon with snare PROCEDURE NOTE: After informed consent was obtained, the patient was brought to the endoscopy suite, placed in bed in left lateral decubitus position. She was administered IV sedation by the GARAGE DOOR TECHNICIAN who then monitored vitals the entire time, heart rate, blood pressure and pulse ox and the scope was inserted down the mouth through the esophagus into the stomach. On the way down, noted what looked like Calzada's esophagitis, took a picture, pushed into the stomach, pushed past the antrum into the duodenum. Duodenum looked good. Pulled back and did a biopsy of antrum, then retroflexed the scope, saw a hiatal hernia, took a picture of this and then pulled the scope into the GE junction, took another picture of the hiatal hernia and then did two biopsies of the GE junction. Pushed the scope back into the stomach, suctioned all the air out of the stomach. At this point pulled the scope up the esophagus and out the mouth. Switched camera, switched gloves, went down below and started the colonoscopy. Pushed all the way into about 140 cm to get all the way to cecum. On the way in noted multiple polyps but elected to get them on the way out. Took a picture of the appendiceal orifice and noted the ileocecal valve; saw a cecal polyp and did a snare polypectomy. Then slowly withdrew the scope, insufflating to look circumferentially at the garcia from the cecum, up the ascending colon to the hepatic flexure, then down the transverse colon, splenic flexure, into the descending colon, down into the sigmoid and finally into the rectum. Throughout the colon saw over 10 polyps and removed one in the Transverse colon, one in the descending colon, five in the Sigmoid and four in the rectum. I retroflexed in the rectal vault, saw some minimal internal hemorrhoids and took a picture of this. The patient tolerated the procedure and she recovered in the endoscopy suite. Anesthesia Type IV sedation by GARAGE DOOR TECHNICIAN Estimated Blood Loss Estimated blood loss (mL): scant Specimens/Packing Specimens Removed antral bx GE jxn bx Cecal polyp transverse colon polyp descending colon polyp sigmoid polyp x 5 rectal polyp x 4 CAMMIE LIZAMA DO Apr 06, 2021 10:34
[2021-04-06 10:35] VITALS: BP 168/87
--- NOTE | 2021-04-06 10:35 | Endoscopy Discharge Instruct ---
Endo Procedure/Findings Findings 1.: Hiatal Hernia 2.: Calzada's Esophagus 3.: Polyp 4.: Internal Hemorrhoids Discharge Instructions - Activity: You might feel a little sleepy until tomorrow. This is due to the medicine you received to relax you. Until tomorrow, you should: NOT drive a car, operate machinery or power tools. NOT drink any alcoholic beverages. NOT make any important decisions or sign importortant papers. Do not return to work until tomorrow, unless otherwise instructed. Resume previous activities tomorrow. Diet: Start by taking liquids. If you tolerate liquids, advance to solid food. 1.: EGD in 1 year 2.: Colonoscopy in 1 year Notify Physician - If you experience excessive bleeding, unusual abdominal pain, fever, or chest pain, contact your doctor immediately. CAMMIE LIZAMA DO Apr 06, 2021 10:35
[2021-04-06 10:40] VITALS: BP 143/78
[2021-04-06 11:03] VITALS: BP 140/73
--- NOTE | 2021-04-06 12:24 | Anesthesia-General Post-Op ---
MAC Patient Condition Mental Status/LOC: Same as Preop Cardiovascular: Satisfactory Nausea/Vomiting: Absent Respiratory: Satisfactory Pain: Controlled Complications: Absent Post Op Complications Complications None Follow Up Care/Instructions Patient Instructions None needed. Anesthesiology Discharge Order Discharge Order Patient is doing well, no complaints, stable vital signs, no apparent adverse anesthesia problems. No complications reported per nursing. GAGAN COLE CRNA Apr 06, 2021 12:24
== END 2021-04-06 11:15 | disposition home or self-care (01) ==
LOC: ENDO 08:04
PROVIDERS: ATTEND Surgery
DX: K22.70 Barrett's esophagus without dysplasia (principal); D12.3 Benign neoplasm of transverse colon; D12.5 Benign neoplasm of sigmoid colon; K62.1 Rectal polyp; K63.5 Polyp of colon; K44.9 Diaphragmatic hernia without obstruction or gangrene; K64.8 Other hemorrhoids; E66.9 Obesity, unspecified; F17.210 Nicotine dependence, cigarettes, uncomplicated; Z68.36 Body mass index [BMI] 36.0-36.9, adult; Z90.49 Acquired absence of other specified parts of digestive tract; Z90.89 Acquired absence of other organs; Z90.710 Acquired absence of both cervix and uterus; Z80.1 Family history of malignant neoplasm of trachea, bronchus and lung

== ENCOUNTER → 2021-08-21 | Outpatient (CLI) | payer OTHER ==
--- NOTE | 2021-08-21 11:02 | Diagnostic Imaging Report ---
INDICATION: Routine screening. COMPARISON: 09/05/2014. TECHNIQUE: 2D and 3D bilateral screening mammography was performed with CAD. FINDINGS: Scattered fibroglandular densities are identified bilaterally. A benign nodule in the outer left breast at mid depth is noted, likely an intraparenchymal lymph node. There has been development of a circumscribed nodule in the inferior right breast since the prior exam. This is at approximately the 6 o'clock location 5 to 6 cm from the nipple. No other masses are identified. The axillae are unremarkable. IMPRESSION: Development of a circumscribed nodule in the inferior right breast as described. Further evaluation with ultrasound is recommended. ACR BI-RADS Category 0: Incomplete. (Needs additional imaging evaluation). Result letter will be mailed to the patient. Note: At least 10% of breast cancer is not imaged by mammography. Dictated by: Dictated on workstation # [id number]
== END ==
LOC: RAD 08:30
PROVIDERS: ATTEND Family Medicine
DX: Z12.31 Encounter for screening mammogram for malignant neoplasm of breast (principal); N63.10 Unspecified lump in the right breast, unspecified quadrant
CPT/HCPCS: 77063; 77067

== ENCOUNTER → 2021-09-07 | Outpatient (CLI) | payer OTHER ==
--- NOTE | 2021-09-07 09:58 | Diagnostic Imaging Report ---
Indication: Right breast nodule. Correlation is made with screening mammogram from 08/21/2021. Sonographic interrogation of the inferior right breast was performed. There is a small hypoechoic nodule at the 6:00 location of the right breast, 4 cm from the nipple measuring 5 mm x 5 mm x 3 mm. This may account for the mammographic density. This has fairly benign features. No other masses are seen. IMPRESSION: BI-RADS Category 3 Benign-appearing nodule at the 6:00 location of the right breast, 4 cm from the nipple, likely accounting for the mammographic density. This may represent an intraparenchymal lymph node. Even so, follow-up right mammogram and right breast ultrasound in 6 months is recommended to show continued stability. ACR BI-RADS Category 3: Probably benign findings. Result letter will be mailed to the patient. Note: At least 10% of breast cancer is not imaged by mammography. Dictated by: Dictated on workstation # [id number]
== END ==
LOC: RAD 09:15
PROVIDERS: ATTEND Family Medicine
DX: N63.10 Unspecified lump in the right breast, unspecified quadrant (principal)

== ENCOUNTER → 2022-03-24 | Outpatient (CLI) | payer OTHER ==
--- NOTE | 2022-03-24 19:37 | Diagnostic Imaging Report ---
INDICATION: Six-month follow-up right breast nodule. COMPARISON: Correlation is made with diagnostic mammogram from earlier the same day and prior right breast ultrasound from 09/07/2021. EXAMINATION: Sonographic interrogation of the 6:00 location of right breast was performed. FINDINGS: The small nodule noted previously is not well-seen on today's study. No new mass is detected. IMPRESSION: Previously noted nodule is not well-visualized today. Even so, follow-up right mammogram and right breast ultrasound in six months is recommended to show continued stability. ACR BI-RADS Category 3: Probably benign findings. Result letter will be mailed to the patient. Note: At least 10% of breast cancer is not imaged by mammography. Dictated by: Dictated on workstation # [id number]
--- NOTE | 2022-03-24 19:40 | Diagnostic Imaging Report ---
INDICATION: Six-month follow-up right breast nodule. COMPARISON: Correlation is made with prior mammograms from 08/21/2021 and 09/23/2014. EXAMINATION: Unilateral right 2D and 3D diagnostic mammography was performed with CAD. FINDINGS: Scattered fibroglandular densities in the right breast are noted. The small circumscribed nodule in the lower right breast mid depth appears stable. No new mass is detected. There are benign calcifications. No malignant-appearing microcalcifications are seen. IMPRESSION: Stable nodule at 6:00 location in right breast mid depth when compared to examination of six months earlier. Even so, sonographic evaluation of the nodule is recommended and will be performed today. ACR BI-RADS Category 0: Incomplete. (Needs additional imaging evaluation). Result letter will be mailed to the patient. Note: At least 10% of breast cancer is not imaged by mammography. Dictated by: Dictated on workstation # [id number]
== END ==
LOC: RAD 12:45
PROVIDERS: ATTEND Family Medicine
DX: N63.15 Unspecified lump in the right breast, overlapping quadrants (principal)

== ENCOUNTER → 2022-06-22 | Outpatient (CLI) | payer OTHER ==
[~2022-06-22] VITALS: Ht 167.7 cm; Wt 88.0 kg
== END | disposition home or self-care (01) ==
LOC: PREOP 05:33
PROVIDERS: ATTEND Surgery
DX: Z01.818 Encounter for other preprocedural examination (principal)

== ENCOUNTER 2022-06-28 08:51 | Day surgery (SDC) | payer OTHER ==
[~2022-06-28] VITALS: Ht 36.6 cm; Wt 88.0 kg
[2022-06-28] MEDS ORDERED: LACTATED RINGERS 1,000 ML IV STA (09:11)
[2022-06-28] MEDS ORDERED: HURRICAINE EXT TUBE (BENZOCAINE) XX PRN (09:15)
[2022-06-28 09:20] VITALS: BP 162/93
--- NOTE | 2022-06-28 09:34 | Progress Note-Pre Operative ---
Pre-Operative Progress Note Date of Available H&P: Jun 15, 2022 Date H&P Reviewed: Jun 28, 2022 Time H&P Reviewed: 09:31 History & Physical: H&P Reviewed, Patient Examed, No changes noted Pre-Operative Diagnosis: Hx of Calzada's Esophagus CAMMIE LIZAMA DO Jun 28, 2022 09:34
[2022-06-28] MEDS ORDERED: PROPOFOL INJECTION 50 ML IV ONE (09:58)
[2022-06-28 10:20] VITALS: BP 120/66
--- NOTE | 2022-06-28 10:21 | Progress Note-Post Operative ---
Post-Operative Progess Note Surgeon (s)/Oxyacetylene Torch Operator (s) Surgeon CAMMIE LIZAMA DO Oxyacetylene Torch Operator: none Pre-Operative Diagnosis Hx of Calzada's Esophagus Post-Operative Diagnosis Gastritis Gastric Polyp Hiatal hernia Esophagitis Procedure & Operative Findings Date of Procedure 06/28/22 Procedure Performed/Findings EGD with bx EGD with hot polypectomy PROCEDURE NOTE: After informed consent was obtained, the patient was brought to the endoscopy suite, placed in bed in left lateral decubitus position. She was administered IV sedation by the SIGN INSTALLER who then monitored vitals the entire time, heart rate, blood pressure and pulse ox and the scope was inserted down the mouth through the esophagus into the stomach. On the way down, noted some mild esophagitis, took a picture, pushed into the stomach, pushed past the antrum into the duodenum. Duodenum looked good. Pulled back and did a biopsy of antrum, then retroflexed the scope, saw a small hiatal hernia and took a picture of this. I also found a polyp and elected to remove it with hot biopsy. I then pulled the scope into the GE junction, took another picture of the hiatal hernia and then did two biopsies of the GE junction. Pushed the scope back into the stomach, suctioned all the air out of the stomach. At this point pulled the scope up the esophagus and out the mouth. The patient tolerated the procedure, and she recovered in endoscopy suite. Anesthesia Type IV sedation by SIGN INSTALLER Estimated Blood Loss Estimated blood loss (mL): scant Specimens/Packing Specimens Removed antral bx gastric polyp bx GE jxn bx CAMMIE LIZAMA DO Jun 28, 2022 10:21
--- NOTE | 2022-06-28 10:22 | Endoscopy Discharge Instruct ---
Endo Procedure/Findings Findings 1.: Gastritis 2.: Calzada's Esophagus 3.: Polyp 4.: Hiatal Hernia Discharge Instructions - Activity: You might feel a little sleepy until tomorrow. This is due to the medicine you received to relax you. Until tomorrow, you should: NOT drive a car, operate machinery or power tools. NOT drink any alcoholic beverages. NOT make any important decisions or sign importortant papers. Do not return to work until tomorrow, unless otherwise instructed. Resume previous activities tomorrow. Diet: Start by taking liquids. If you tolerate liquids, advance to solid food. 1.: EGD in 3 years Notify Physician - If you experience excessive bleeding, unusual abdominal pain, fever, or chest pain, contact your doctor immediately. CAMMIE LIZAMA DO Jun 28, 2022 10:22
[2022-06-28 10:25] VITALS: BP 119/64
[2022-06-28 10:30] VITALS: BP 128/74
[2022-06-28 10:57] VITALS: BP 128/74
--- NOTE | 2022-06-28 11:46 | Anesthesia-General Post-Op ---
MAC Patient Condition Mental Status/LOC: Same as Preop Cardiovascular: Satisfactory Nausea/Vomiting: Absent Respiratory: Satisfactory Pain: Controlled Complications: Absent Post Op Complications Complications None Follow Up Care/Instructions Patient Instructions None needed. Anesthesiology Discharge Order Discharge Order Patient is doing well, no complaints, stable vital signs, no apparent adverse anesthesia problems. No complications reported per nursing. ISMAEL RAO CRNA Jun 28, 2022 11:46
== END 2022-06-28 11:00 | disposition home or self-care (01) ==
LOC: ENDO 08:51
PROVIDERS: ATTEND Surgery
DX: K29.70 Gastritis, unspecified, without bleeding (principal); K31.7 Polyp of stomach and duodenum; K44.9 Diaphragmatic hernia without obstruction or gangrene; K21.00 Gastro-esophageal reflux disease with esophagitis, without bleeding; K22.70 Barrett's esophagus without dysplasia; K31.89 Other diseases of stomach and duodenum; F17.210 Nicotine dependence, cigarettes, uncomplicated; E66.9 Obesity, unspecified; Z68.34 Body mass index [BMI] 34.0-34.9, adult; Z28.310 Unvaccinated for COVID-19

== ENCOUNTER → 2022-07-07 | Outpatient (CLI) | payer OTHER | LOC: CARD 10:18 | PROVIDERS: ATTEND Family Medicine | DX: R07.9 Chest pain, unspecified (principal) | CPT/HCPCS: 36415; 84484; 93005 ==

== ENCOUNTER → 2022-08-25 | Outpatient (CLI) | payer OTHER | LOC: CARD 09:22 | PROVIDERS: ATTEND Internal Medicine Cardiovascular Disease | DX: I10 Essential (primary) hypertension (principal); I25.10 Atherosclerotic heart disease of native coronary artery without angina pectoris ==

== ENCOUNTER → 2022-10-20 | Outpatient (CLI) | payer OTHER ==
[~2022-10-20] MED LIST changes: +CATHETER FLUSH 10 ML SYR IVP PRN; +REGADENOSON 0.4 MG/5 ML SYR (LEXISCAN) IV ONE
[2022-10-20 13:14] VITALS: BP 160/94
--- NOTE | 2022-10-20 15:13 | Cardiology Stress Test Report ---
Stress Test Report Date of Procedure/Referring: Date of Procedure: October 20, 2022 PCP Johnny Avalos DO Admitting Physician Admitting Physician: Attending Physician: Naheed Mak Baseline Heart Rate: 60 Baseline Blood Pressure: Blood Pressure Systolic: 160 Blood Pressure Diastolic: 94 Baseline Vitals Vital Signs Date Time Temp Pulse Resp B/P (MAP) Pulse Ox O2 Delivery O2 Flow Rate FiO2 10/20/22 13:14 61 160/94 (116) Baseline EKG: Baseline EKG: NSR Summary After explaining the procedure to the patient, she signed a consent and then brought to the stress nuclear laboratory. Patient received 0.4 mg Lexiscan for stress test, ECG, heart rate and blood pressure were monitored continuously. Resting and stress dose of radio tracer were injected, imaging was acquired and reviewed in short axis, horizontal long axis and vertical long axis views. TID: 1.1 SSS: 3 SDS: 3 EF: 61 Patient tolerated Lexiscan well No significant ischemia or infarction noted on SPECT images Normal left ventricular size, ejection fraction 61% Copy Copies To 1: JOHNNY AVALOS BASHAR J MD October 20, 2022 15:13
== END ==
LOC: CARD 12:00
PROVIDERS: ATTEND Physician Assistant
DX: R07.9 Chest pain, unspecified (principal)
CPT/HCPCS: 78452; 93017

== ENCOUNTER 2023-02-20 18:08 | Emergency (ER) | payer OTHER ==
[~2023-02-20] VITALS: Ht 167.7 cm; Wt 100.0 kg
[~2023-02-20 18:08] MED LIST changes: -CATHETER FLUSH 10 ML SYR IVP PRN; -REGADENOSON 0.4 MG/5 ML SYR (LEXISCAN) IV ONE
--- NOTE | 2023-02-20 18:28 | ED Upper Extremity ---
General Chief Complaint: Upper Extremity Stated Complaint: RIGHT ARM Nursing Triage Note: PT AMB TO RM 10 WITH CC OF RIGHT ARM PAIN THAT RADIATES TO THE NECK. PAIN STARTED 1 HR AGO. Source: patient Exam Limitations: no limitations History of Present Illness Date Seen by Provider: Feb 20, 2023 Time Seen by Provider: 18:25 Initial Comments Patient is a 62-year-old female presents ED with right arm pain. Pain radiates from the right posterior arm to the right thumb. Described as more pain with numbness and tingling. This occurred 1 hour ago while peeling potatoes. Patient denies history of similar symptoms. Over the past 2 or 3 days she has had a mild headache. No visual changes, slurred speech. She does report her right arm feeling somewhat weaker. Patient states over the past month she has had cough, congestion with some mild shortness of breath with the diarrhea. Denies any vomiting. She has not been evaluated for her symptoms. Concern for potential pneumonia. She denies of any specific chest pain or shortness of breath at this time. Denies abdominal pain, fever, chills, vomiting. She does have an inhaler with a history of COPD. History of hypertension. Denies h istory of coronary artery disease. History of mitral valve disease. She does report some mild malaise and weakness Allergies and Home Medications Allergies Coded Allergies: Penicillins (Unverified Allergy, Mild, HIVES, 06/22/22) Sulfa (Sulfonamide Antibiotics) (Unverified Allergy, Mild, HIVES, 06/22/22) Patient Home Medication List Home Medication List Reviewed: Yes Review of Systems Constitutional: No chills, No diaphoresis; malaise, weakness EENTM: No ear pain, No blurred vision, No double vision Respiratory: cough Cardiovascular: chest pain Gastrointestinal: No abdominal pain; diarrhea; No nausea, No vomiting Genitourinary: No decreased output, No discharge Musculoskeletal: No back pain, No joint pain; muscle pain, other (Numbness and tingling right arm) All Other Systems Reviewed Negative Unless Noted: Yes Past Klwjwas-Pnuipw-Wzvbpt Hx Patient Social History Tobacco Use?: Yes Tobacco type used: Cigarettes Substance use?: No Alcohol Use?: No Immunizations Up To Date Tetanus Booster (TDap): Less than 5yrs PED Vaccines UTD: Yes First/Initial COVID19 Vaccinat: NO Second COVID19 Vaccination Bob: NO Third COVID19 Vaccination Date: NO Seasonal Allergies Seasonal Allergies: No Past Medical History Surgeries: Yes (TOE, R KNEE , MENISCUST, THRYOID CYST REMOVED, CARPEL TUNNEL) Adenoidectomy, Gallbladder, Hysterectomy, Tonsillectomy, Tubal Ligation Respiratory: No Pneumonia, Chronic Bronchitis, COPD Currently Using CPAP: No Currently Using BIPAP: No Cardiac: Yes (mitral valve prolapse) Neurological: No 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 Sexually Transmitted Disease: No HIV/AIDS: No Genitourinary: No Gastrointestinal: Yes (hx of baretts esophagus) Gastroesophageal Reflux, Calzada's Esophagus, Polyps, Gall Bladder Disease Musculoskeletal: Yes (left arm ) Fractures Endocrine: No HEENT: No Loss of Vision: Denies Hearing Impairment: Hard of Hearing Cancer: No Psychosocial: No Integumentary: No Blood Disorders: No Adverse Reaction/Blood Tranf: No Family Medical History Cancer 09 SISTER Cancer of colon 03 MOTHER Congenital heart disease 09 SISTER Family history: Cardiovascular disease 03 MOTHER Family history: Diabetes mellitus 03 MOTHER Heart disease 03 MOTHER Psychotic disorder 09 SISTER No Pertinent Family Hx Physical Exam Vital Signs Vital Signs - First Documented 02/20/23 18:15 Temp 37.1 Pulse 86 B/P (MAP) 186/97 (126) Pulse Ox 98 O2 Delivery Room Air Capillary Refill : Height, Weight, BMI Height: 5'6.00" Weight: 203lbs. 6.8oz. 92.716643he; 35.00 BMI Method:Stated General Appearance: WD/WN, no apparent distress HEENT: PERRL/EOMI, normal ENT inspection, TMs normal, pharynx normal Neck: non-tender, full range of motion, supple, normal inspection Cardiovascular: regular rate, rhythm, no edema, no gallop, no JVD Respiratory: chest non-tender, lungs clear, normal breath sounds, no respiratory distress, no accessory muscle use, wheezing Gastrointestinal: normal bowel sounds, non tender, soft, no organomegaly, no pulsatile mass Shoulder: normal inspection, non-tender, no evidence of injury, limited ROM Wrist: Yes normal inspection, Yes non-tender, Yes no evidence of injury Hand: normal inspection, non-tender, no evidence of injury, Right Neurologic/Tendon: normal sensation, normal motor functions, normal tendon functions 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 In V2 to V6. 72 bpm, QRS duration 70 MS, QTc 401 MS Departure Communication (PCP) Differential diagnosis: right arm strain, cervical radiculopathy, ACS, stroke, tendinitis. Patient with acute onset of right sided arm pain. Patient was peeling potatoes at the time. Pain starts from the posterior upper arm radiates to the right thumb. She states her right arm feels slightly weaker. 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 She does have a history of cervical degenerative disc disease. She had a cardiac stress test in October 2022 which sh owed some mild coronary artery disease. History of mitral valve disease. Not currently on anticoagulants. Not currently taking blood pressure medication. She is hypertensive. She reports diarrhea cough flulike symptoms for the past month. History of smoking. She does not like to take medication. NIH was 1. subtle weakness lifting the right arm but seems to be secondary to limitation from her shoulder. she states she has osteoarthritis in her right shoulder. She able to differentiate pain of the right arm. Administration Vice President strength 5 out of 5. Cardiac work-up, CT scan of the head was initiated. CT scan of the head was negative for acute abnormality. EKG showed sinus rhythm with some moderate T wave abnormality in the anterior lateral leads. She did have a similar type EKG on 10/20/2022 accept T wave inversions noted in V5 to V6 today. No chest pain or shortness of breath. She reports some diarrhea. CBC, CMP was grossly unremarkable. Normal troponin. COVID influenza was ordered which were negative. Chest x-ray was negative for pneumonia, pneumothorax, cardiomegaly, pleural effusion. Patient refused anything for pain. Clinically does not appear to be secondary to a stroke. She was hypertensive. She is supposed to be on metoprolol but she does not want to take medication. She states she is currently watching her salt intake. She refused a dose of metoprolol. Not much Improvement of blood pressure 172/103. She is not tachycardic or hypoxic. There is no evidence of bruits. Negative Spurling sign suggesting cervical radiculopathy. She did have limited range of motion bilateral shoulders which is chronic accoridn to patient. She has some mild tenderness to the right posterior arm. Normal range of motion of the elbow. This appears to be more muscular in nature however due to some T wave inversions in the lateral leads recommended a delta troponin. Delta troponin was negative. She states pain seems to be improving. She was peeling potatoes at the time the pain started. Due to some subtle changes in her EKG outpatient cardiac follow-up for potential atypical presentation. Recommend follow-up with your PCP in the next 1 to 2 days for reevaluation of the arm pain. If any worsening arm pain, or developing unilateral weakness, chest pain or shortness of breath to return back to the ED. Impression Primary Impression: Right arm pain Disposition: 01 HOME, SELF-CARE Condition: Stable Departure-Patient Inst. Decision time for Depature: 20:48 Referrals: WARNER YA DO (PCP/Family) Primary Care Physician Patient Instructions: Muscle Strain (DC) Add. Discharge Instructions: Recommend following up with your primary care physician for further evaluation of the arm pain. Further cardiac evaluation. If any worsening arm pain, one- sided weakness, severe head pain or chest pain to return back to ED. All discharge instructions reviewed with patient and/or family. Voiced understanding. KIM THORNTON Feb 20, 2023 18:28
[2023-02-20 18:38] LABS: BASOPHILS # (AUTO) 0.1 10^3/uL (0.0-0.1); BASOPHILS % (AUTO) 1 % (0-10); EOSINOPHILS # (AUTO) 0.1 10^3/uL (0.0-0.3); EOSINOPHILS % (AUTO) 1 % (0-10); HEMATOCRIT 44 % (35-52); HEMOGLOBIN 14.5 g/dL (11.5-16.0); LYMPHOCYTES # (AUTO) 3.6 10^3/uL (1.0-4.0); LYMPHOCYTES % (AUTO) 40 % (12-44); MEAN CORPUSCULAR HEMOGLOBIN 30 pg (25-34); MEAN CORPUSCULAR HGB CONC 33 g/dL (32-36); MEAN CORPUSCULAR VOLUME 91 fL (80-99); MEAN PLATELET VOLUME 10.1 fL (9.0-12.2); MONOCYTES # (AUTO) 0.6 10^3/uL (0.0-1.0); MONOCYTES % (AUTO) 7 % (0-12); NEUTROPHILS # (AUTO) 4.7 10^3/uL (1.8-7.8); NEUTROPHILS % (AUTO) 51 % (42-75); PLATELET COUNT 207 10^3/uL (130-400); WHITE BLOOD COUNT 9.1 10^3/uL (4.3-11.0)
[2023-02-20 18:41] LABS: ALBUMIN 4.1 GM/DL (3.2-4.5)
[2023-02-20 18:42] LABS: CHLORIDE 106 MMOL/L (98-107); POTASSIUM 3.6 MMOL/L (3.6-5.0); SODIUM 139 MMOL/L (135-145)
[2023-02-20 18:43] LABS: CALCIUM 9.3 MG/DL (8.5-10.1); PROTHROMBIN TIME PATIENT 12.9 SEC (12.2-14.7)
[2023-02-20 18:44] LABS: GLUCOSE 100 MG/DL (70-105); TOTAL PROTEIN 6.8 GM/DL (6.4-8.2)
[2023-02-20 18:45] LABS: CARBON DIOXIDE 21 MMOL/L (21-32)
[2023-02-20 18:46] LABS: BILIRUBIN,TOTAL 0.4 MG/DL (0.1-1.0)
[2023-02-20 18:47] LABS: ALKALINE PHOSPHATASE 69 U/L (40-136)
[2023-02-20 18:50] LABS: ALANINE AMINOTRANSFERASE 33 U/L (0-55); MAGNESIUM 1.9 MG/DL (1.6-2.4)
--- NOTE | 2023-02-20 18:56 | Diagnostic Imaging Report ---
EXAMINATION: CT head without contrast. TECHNIQUE: Multiple contiguous axial images were obtained through the brain without the use of intravenous contrast. All CT scans use one or more of the following dose optimizing techniques: automated exposure control, MA and/or KvP adjustment based on patient size and exam type or iterative reconstruction. HISTORY: Headache. Right arm pain and weakness. COMPARISON: None available. FINDINGS: No large acute territorial ischemia, mass or hemorrhage. No midline shift or mass effect. The ventricles, cortical sulci and basilar cisterns are patent and unremarkable. The orbits are normal. Paranasal sinuses are normal. Mastoid air cells are clear. No soft tissue abnormality is seen. No osseus lesion or fracture is seen. IMPRESSION: No large acute territorial ischemia, mass or hemorrhage. Dictated by: Dictated on workstation # [id number]
--- NOTE | 2023-02-20 18:57 | Diagnostic Imaging Report ---
EXAMINATION: Chest 1 view. HISTORY: Chest pain. Right arm pain. COMPARISON: 12/17/2019. FINDINGS: The lung volumes are normal. No focal consolidation is seen. No large pleural effusion or pneumothorax is seen. The cardiomediastinal silhouette is normal in size and contour. No acute osseous abnormality is seen. IMPRESSION: No acute pleuroparenchymal process. Dictated by: Dictated on workstation # [id number]
[2023-02-20 19:35] LABS: BUN/CREATININE RATIO 13; CREATININE SERUM 1.09 MG/DL (0.60-1.30); GFR ESTIMATED 57
[2023-02-20 21:50] VITALS: BP 172/103
== END 2023-02-20 21:50 | disposition home or self-care (01) ==
LOC: EDUNIT# 18:08 → ER 18:10
DX: M79.601 Pain in right arm (principal); F17.210 Nicotine dependence, cigarettes, uncomplicated; Z28.310 Unvaccinated for COVID-19; Z20.822 Contact with and (suspected) exposure to COVID-19
CPT/HCPCS: 36415; 70450; 71045; 80053; 83735; 84484; 85025; 85610; 85730; 87636; 93005